=== PATIENT | female | born 1985 | race Caucasian/White ===

== ENCOUNTER 2017-08-04 10:58 | Emergency (ER) | payer MEDICARE, MEDICAID ==
[~2017-08-04] VITALS: Ht 172.7 cm; Wt 102.9 kg
[~2017-08-04 10:58] MED LIST: CLON0.1T20 PO; CLON1TAB4 PO; LAMO100T89 PO; LITH300T5 PO; NICO-687 TD; OLAN10TA19 PO; OLAN2.5T28 PO; VENL150T3 PO
[2017-08-04 11:29] VITALS: BP 159/77
== END 2017-08-04 14:37 | disposition left against medical advice (07) ==
LOC: ER 10:58
DX: R05 Cough (principal); Z53.21 Procedure and treatment not carried out due to patient leaving prior to being seen by health care provider

== ENCOUNTER 2018-02-15 22:12 | Emergency (ER) | payer MEDICARE, MEDICAID ==
[~2018-02-15] VITALS: Ht 172.7 cm; Wt 118.0 kg
[~2018-02-15 22:12] MED LIST changes: +CLON1TAB12 PO; -CLON1TAB4 PO
[2018-02-15 23:21] LABS: CLARITY,URINE CLEAR (Clear); COLOR,URINE YELLOW (Yellow); GLUCOSE, URINE NEGATIVE (Neg); KETONES,URINE NEGATIVE (Neg); LEUKOCYTE ESTERASE ,URINE NEGATIVE (Neg); NITRITES, URINE NEGATIVE (Neg); OCCULT BLOOD,URINE TRACE-INTACT (Neg); PROTEIN,URINE NEGATIVE (Neg); UROBILINOGEN,URINE 0.2 E.U/dL (0.2-1.0)
[2018-02-15 23:27] LABS: UA COLLECTION TYPE NON-SPECIFIED
[2018-02-15 23:28] LABS: BACTERIA,URINE FEW /HPF (Neg); RBC,URINE 0-2 /HPF (0-2); SQUAMOUS EPITHELIAL CELL,UR FEW /LPF (FEW); WBC,URINE 0-4 /HPF (0-4)
[2018-02-15 23:48] LABS: URINE HCG NEGATIVE (NEG)
[2018-02-16 00:18] VITALS: BP 97/56
[2018-02-16] MEDS ORDERED: TRAZ150T78 PO (00:19)
[2018-02-16] MEDS ORDERED: MECL-111 PO (00:19)
[2018-02-16] MEDS ORDERED: meclizine 12.5mg tablet PO ONE (00:20)
[2018-02-16] MEDS ORDERED: traZODone 150mg tablet PO ONE (00:25)
[2018-02-16] MEDS ORDERED: traZODone 150mg tablet PO SCH (20:00)
== END 2018-02-16 00:38 | disposition home or self-care (01) ==
LOC: ER 22:13
DX: G47.00 Insomnia, unspecified (principal); R42 Dizziness and giddiness; N93.9 Abnormal uterine and vaginal bleeding, unspecified; G89.29 Other chronic pain; F12.90 Cannabis use, unspecified, uncomplicated; F17.200 Nicotine dependence, unspecified, uncomplicated; Z86.69 Personal history of other diseases of the nervous system and sense organs; Z88.8 Allergy status to other drugs, medicaments and biological substances; Z79.899 Other long term (current) drug therapy
CPT/HCPCS: 81001; 81025; 93005; 99285; J8597

== ENCOUNTER → 2018-03-30 | Emergency (ER) | payer MEDICARE, MEDICAID ==
[~2018-03-30] VITALS: Ht 170.2 cm; Wt 118.0 kg
[~2018-03-30] MED LIST changes: +CLON-527 PO; +CLON0.2T PO; +LORazepam 2 mg/ml vial IV ONE; +MECL-111 PO; +PARO10TA85 PO; +QUET-1 PO; +TRAZ150T78 PO; +VENL-190 PO; +VENL150C2 PO; +normal saline 1000ML IV soln IVB ONE
[2018-03-30 15:25] LABS: URINE HCG NEGATIVE (NEG)
[2018-03-30 15:27] LABS: CLARITY,URINE CLOUDY (Clear); COLOR,URINE YELLOW (Yellow); GLUCOSE, URINE NEGATIVE (Neg); KETONES,URINE NEGATIVE (Neg); LEUKOCYTE ESTERASE ,URINE NEGATIVE (Neg); NITRITES, URINE NEGATIVE (Neg); OCCULT BLOOD,URINE SMALL (Neg); PROTEIN,URINE NEGATIVE (Neg)
[2018-03-30 15:28] LABS: UA COLLECTION TYPE CLN CATCH MIDSTREAM
[2018-03-30 15:36] LABS: AMORPHOUS URATES 2+; BACTERIA,URINE 1+ /HPF (Neg); MUCUS STRANDS MODERATE /LPF (Neg); RBC,URINE 0-2 /HPF (0-2); SQUAMOUS EPITHELIAL CELL,UR MODERATE /LPF (FEW); URINE AMPHETAMINE SCREEN NEGATIVE (Neg); URINE BARBITUATE SCREEN NEGATIVE (Neg); URINE BENZODIAZEPINES SCREEN NEGATIVE (Neg); URINE CANNABINOID SCREEN NEGATIVE (Neg); URINE COCAINE SCREEN NEGATIVE (Neg); URINE METHADONE SCREEN NEGATIVE (Neg); URINE OPIATE SCREEN NEGATIVE (Neg); URINE PHENCYCLIDINE SCREEN NEGATIVE (Neg)
[2018-03-30 15:37] LABS: BASOPHILS # (AUTO) 0.1 X10'3 (0-0.2); BASOPHILS % (AUTO) 0.5 % (0-1); EOSINOPHILS % (AUTO) 0.2 % (0-6); HEMATOCRIT 38.5 % (35.0-45.0); HEMOGLOBIN 12.6 g/dl (12.0-16.0); LYMPHOCYTES # (AUTO) 1.4 X10'3 (1.1-4.8); LYMPHOCYTES % (AUTO) 14.6 % (21-51); MEAN CORPUSCULAR HEMOGLOBIN 28.5 PG (27.0-31.0); MEAN CORPUSCULAR HGB CONC 32.7 % (33.0-36.5); MEAN CORPUSCULAR VOLUME 87.1 FL (78-98); MEAN PLATELET VOLUME 8.6 FL (7.4-10.4); MONOCYTES # (AUTO) 0.4 X10'3 (0-0.9); MONOCYTES % (AUTO) 4.3 % (2-12); NEUTROPHILS # (AUTO) 7.9 X10'3 (1.8-7.7); NEUTROPHILS % (AUTO) 80.4 % (42-75); PLATELET COUNT 324 X10'3 (140-440); RED BLOOD COUNT 4.42 X10'6 (4.20-5.60); RED CELL DISTRIBUTION WIDTH 13.6 % (11.5-14.5); WHITE BLOOD COUNT 9.8 X10'3 (4.5-11.0)
[2018-03-30 15:52] LABS: ALANINE AMINOTRANSFERASE 20 U/L (12-78); ALBUMIN 3.6 G/DL (3.4-5.0); ALBUMIN/GLOBULIN RATIO 1.1 (1.1-1.5); ALKALINE PHOSPHATASE 116 IU/L (46-116); ANION GAP 5 (8-16); ASPARTATE AMINO TRANSFERASE 13 U/L (10-37); BILIRUBIN,TOTAL 0.4 MG/DL (0.1-1.0); BLOOD UREA NITROGEN 10 MG/DL (7-18); BUN/CREATININE RATIO 9.5 (6.6-38.0); CALCIUM 9.3 MG/DL (8.5-10.1); CHLORIDE 104 MMOL/L (99-107); CREATININE 1.05 MG/DL (0.40-0.90); GLUCOSE 101 MG/DL (70-104); POTASSIUM 4.3 MMOL/L (3.5-5.1); SODIUM 137 MMOL/L (135-145); TOTAL CARBON DIOXIDE 28.3 MMOL/L (24-32); TOTAL PROTEIN 6.9 G/DL (6.4-8.2); eGFR 62 ML/MIN
[2018-03-30 16:22] VITALS: BP 141/75
== END | disposition home or self-care (01) ==
LOC: ER 14:34
DX: R42 Dizziness and giddiness (principal); I10 Essential (primary) hypertension; G89.29 Other chronic pain; F12.90 Cannabis use, unspecified, uncomplicated; Z88.5 Allergy status to narcotic agent; Z79.899 Other long term (current) drug therapy
CPT/HCPCS: 36415; 70450; 80053; 80305; 81001; 81025; 85025; 87088; 93005; 96361; 96374; 99285; J2060

== ENCOUNTER 2018-04-03 10:33 | Emergency (ER) | payer MEDICARE, MEDICAID ==
[~2018-04-03] VITALS: Ht 170.2 cm; Wt 112.8 kg
[~2018-04-03 10:33] MED LIST changes: -CLON-527 PO; -CLON0.2T PO; -LORazepam 2 mg/ml vial IV ONE; -PARO10TA85 PO; -QUET-1 PO; -VENL-190 PO; -VENL150C2 PO; -normal saline 1000ML IV soln IVB ONE
[2018-04-03 12:40] LABS: BASOPHILS # (AUTO) 0.1 X10'3 (0-0.2); EOSINOPHILS # (AUTO) 0.1 X10'3 (0-0.9); EOSINOPHILS % (AUTO) 0.8 % (0-6); HEMATOCRIT 43.2 % (35.0-45.0); HEMOGLOBIN 14.3 g/dl (12.0-16.0); LYMPHOCYTES # (AUTO) 1.8 X10'3 (1.1-4.8); LYMPHOCYTES % (AUTO) 15.1 % (21-51); MEAN CORPUSCULAR HEMOGLOBIN 28.8 PG (27.0-31.0); MEAN CORPUSCULAR VOLUME 87.3 FL (78-98); MEAN PLATELET VOLUME 8.9 FL (7.4-10.4); MONOCYTES # (AUTO) 0.4 X10'3 (0-0.9); MONOCYTES % (AUTO) 3.7 % (2-12); NEUTROPHILS # (AUTO) 9.3 X10'3 (1.8-7.7); NEUTROPHILS % (AUTO) 79.4 % (42-75); PLATELET COUNT 360 X10'3 (140-440); RED BLOOD COUNT 4.95 X10'6 (4.20-5.60); RED CELL DISTRIBUTION WIDTH 13.3 % (11.5-14.5); WHITE BLOOD COUNT 11.7 X10'3 (4.5-11.0)
[2018-04-03 12:49] LABS: URINE HCG NEGATIVE (NEG)
[2018-04-03 12:55] LABS: ALANINE AMINOTRANSFERASE 28 U/L (12-78); ALBUMIN 4.1 G/DL (3.4-5.0); ALBUMIN/GLOBULIN RATIO 1.1 (1.1-1.5); ALKALINE PHOSPHATASE 117 IU/L (46-116); ANION GAP 11 (8-16); ASPARTATE AMINO TRANSFERASE 15 U/L (10-37); BILIRUBIN,TOTAL 0.6 MG/DL (0.1-1.0); BLOOD UREA NITROGEN 11 MG/DL (7-18); BUN/CREATININE RATIO 12.6 (6.6-38.0); CALCIUM 9.9 MG/DL (8.5-10.1); CHLORIDE 103 MMOL/L (99-107); CREATININE 0.87 MG/DL (0.40-0.90); ETHANOL < 0.010 GM/DL (0.0-0.010); GLUCOSE 91 MG/DL (70-104); POTASSIUM 4.6 MMOL/L (3.5-5.1); SODIUM 140 MMOL/L (135-145); TOTAL CARBON DIOXIDE 26.1 MMOL/L (24-32); TOTAL PROTEIN 7.8 G/DL (6.4-8.2); eGFR 76 ML/MIN
[2018-04-03 13:01] LABS: URINE AMPHETAMINE SCREEN NEGATIVE (Neg); URINE BARBITUATE SCREEN NEGATIVE (Neg); URINE BENZODIAZEPINES SCREEN NEGATIVE (Neg); URINE CANNABINOID SCREEN NEGATIVE (Neg); URINE COCAINE SCREEN NEGATIVE (Neg); URINE METHADONE SCREEN NEGATIVE (Neg); URINE OPIATE SCREEN NEGATIVE (Neg); URINE PHENCYCLIDINE SCREEN NEGATIVE (Neg)
[2018-04-03] MEDS ORDERED: CLON0.2T PO (16:52)
[2018-04-03] MEDS ORDERED: VENL-190 PO (16:55)
[2018-04-03] MEDS ORDERED: VENL150C2 PO (17:33)
[2018-04-03] MEDS ORDERED: QUET-1 PO (17:34)
[2018-04-03] MEDS ORDERED: PARO10TA85 PO (17:51)
[2018-04-03] MEDS: LORazepam 1 MG tablet PO PRN (19:03)
[2018-04-03] MEDS ORDERED: CLON-527 PO (19:15)
[2018-04-03] MEDS: clonazePAM 1mg tablet PO SCH (20:10)
[2018-04-03] MEDS: cloNIDine 0.1 mg tablet PO SCH (20:10)
[2018-04-03] MEDS: lamoTRIgine 100mg tablet PO SCH (20:11)
[2018-04-03] MEDS ORDERED: quetiapine 100mg tablet PO SCH (21:00)
[2018-04-03] MEDS ORDERED: lithium carbonate 150mg capsule PO SCH (21:00)
[2018-04-04] MEDS ORDERED: acetaminophen 325mg tablet PO PRN (05:50)
[2018-04-04 05:54] VITALS: BP 99/55
[2018-04-04] MEDS: cloNIDine 0.1 mg tablet PO SCH ×2 (08:00→10:37)
[2018-04-04] MEDS ORDERED: venlafaxine XR 75mg capsule (Q24H) PO SCH (08:00)
[2018-04-04] MEDS ORDERED: non-formulary drug (Venlafaxine HCl (Effexor Xr) 2 CAP) PO SCH (08:00)
[2018-04-04] MEDS ORDERED: PARoxetine 10mg tablet PO SCH (08:00)
[2018-04-04] MEDS: lamoTRIgine 100mg tablet PO SCH (08:09)
[2018-04-04] MEDS: clonazePAM 1mg tablet PO SCH (08:10)
[2018-04-04] MEDS: LORazepam 1 MG tablet PO PRN (10:38)
== END 2018-04-04 13:49 ==
LOC: ER 10:33
DX: R45.851 Suicidal ideations (principal); I10 Essential (primary) hypertension; G89.29 Other chronic pain; F41.9 Anxiety disorder, unspecified; F31.9 Bipolar disorder, unspecified; F12.90 Cannabis use, unspecified, uncomplicated; Z88.5 Allergy status to narcotic agent; Z79.899 Other long term (current) drug therapy
CPT/HCPCS: 36415; 80053; 80178; 80305; 80320; 81025; 85025; 99285

== ENCOUNTER 2018-08-28 15:13 | Emergency (ER) | payer MEDICARE, MEDICAID ==
[~2018-08-28] VITALS: Ht 170.2 cm; Wt 126.8 kg
[~2018-08-28 15:13] MED LIST changes: +CLON-527 PO; -CLON0.1T20 PO; +CLON0.2T PO; -CLON1TAB12 PO; -MECL-111 PO; -NICO-687 TD; -OLAN10TA19 PO; -OLAN2.5T28 PO; +PARO10TA85 PO; +QUET-1 PO; -TRAZ150T78 PO; +VENL150C2 PO; -VENL150T3 PO
[2018-08-28 15:55] LABS: URINE HCG NEGATIVE (NEG)
[2018-08-28 15:56] LABS: CLARITY,URINE SLIGHTLY CLOUDY (Clear); COLOR,URINE YELLOW (Yellow); GLUCOSE, URINE NEGATIVE (Neg); KETONES,URINE NEGATIVE (Neg); LEUKOCYTE ESTERASE ,URINE NEGATIVE (Neg); NITRITES, URINE NEGATIVE (Neg); OCCULT BLOOD,URINE NEGATIVE (Neg); PROTEIN,URINE NEGATIVE (Neg); UROBILINOGEN,URINE 0.2 E.U/dL (0.2-1.0)
[2018-08-28 15:59] LABS: UA COLLECTION TYPE CLN CATCH MIDSTREAM
[2018-08-28 16:11] LABS: SQUAMOUS EPITHELIAL CELL,UR MANY /LPF (FEW)
[2018-08-28 16:13] LABS: BACTERIA,URINE 2+ /HPF (Neg); RBC,URINE NONE SEEN /HPF (0-2); WBC,URINE 0-4 /HPF (0-4)
[2018-08-28 16:17] LABS: BASOPHILS # (AUTO) 0.1 X10'3 (0-0.2); BASOPHILS % (AUTO) 0.7 % (0-1); EOSINOPHILS # (AUTO) 0.2 X10'3 (0-0.9); EOSINOPHILS % (AUTO) 2.1 % (0-6); HEMATOCRIT 43.1 % (35.0-45.0); HEMOGLOBIN 14.1 g/dl (12.0-16.0); LYMPHOCYTES # (AUTO) 2.3 X10'3 (1.1-4.8); MEAN CORPUSCULAR HEMOGLOBIN 28.4 PG (27.0-31.0); MEAN CORPUSCULAR HGB CONC 32.7 g/dL (33.0-36.5); MEAN CORPUSCULAR VOLUME 86.8 FL (78-98); MEAN PLATELET VOLUME 8.8 FL (7.4-10.4); MONOCYTES # (AUTO) 0.5 X10'3 (0-0.9); MONOCYTES % (AUTO) 5.2 % (2-12); NEUTROPHILS # (AUTO) 6.2 X10'3 (1.8-7.7); PLATELET COUNT 358 X10'3 (140-440); RED BLOOD COUNT 4.97 X10'6 (4.20-5.60); RED CELL DISTRIBUTION WIDTH 13.4 % (11.5-14.5); WHITE BLOOD COUNT 9.2 X10'3 (4.5-11.0)
[2018-08-28 16:39] LABS: ALANINE AMINOTRANSFERASE 38 U/L (12-78); ALBUMIN 4.2 G/DL (3.4-5.0); ALBUMIN/GLOBULIN RATIO 1.1 (1.1-1.5); ALKALINE PHOSPHATASE 140 IU/L (46-116); ANION GAP 9 (8-16); ASPARTATE AMINO TRANSFERASE 19 U/L (10-37); BILIRUBIN,TOTAL 0.5 MG/DL (0.1-1.0); BLOOD UREA NITROGEN 6 MG/DL (7-18); BUN/CREATININE RATIO 6.2 (6.6-38.0); CALCIUM 10.2 MG/DL (8.5-10.1); CHLORIDE 103 MMOL/L (99-107); CREATININE 0.97 MG/DL (0.40-0.90); GLUCOSE 80 MG/DL (70-104); POTASSIUM 3.9 MMOL/L (3.5-5.1); SODIUM 140 MMOL/L (135-145); TOTAL CARBON DIOXIDE 27.7 MMOL/L (24-32); TOTAL PROTEIN 8.2 G/DL (6.4-8.2); eGFR 67 ML/MIN
[2018-08-28 17:01] LABS: PROTHROMBIN TIME 10.1 SECONDS (9.0-12.0)
[2018-08-28] MEDS ORDERED: ondansetron 4mg rapidly disintigrating tab PO ONE (18:20)
[2018-08-28] MEDS ORDERED: HYDROcodone/acetaminophen 5mg/325mg tablet PO ONE (18:20)
[2018-08-28] MEDS ORDERED: NAPR-56 PO (19:04)
[2018-08-28] MEDS ORDERED: ONDA4TAB6 PO (19:04)
[2018-08-28 19:15] VITALS: BP 121/73
== END 2018-08-28 19:16 | disposition home or self-care (01) ==
LOC: ER 15:13
DX: R10.11 Right upper quadrant pain (principal); E66.01 Morbid (severe) obesity due to excess calories; R10.13 Epigastric pain; I10 Essential (primary) hypertension; G89.29 Other chronic pain; F12.90 Cannabis use, unspecified, uncomplicated; Z88.5 Allergy status to narcotic agent; Z79.899 Other long term (current) drug therapy
CPT/HCPCS: 36415; 76700; 80053; 81001; 81025; 85025; 85610; 99284

== ENCOUNTER 2019-11-02 13:15 | Emergency (ER) | payer MEDICARE, MEDICAID ==
[~2019-11-02] VITALS: Ht 170.2 cm; Wt 145.4 kg
[~2019-11-02 13:15] MED LIST changes: +LAMO100T PO; -LAMO100T89 PO; +ONDA4TAB6 PO
[2019-11-02 13:25] VITALS: BP 128/103
[2019-11-02] MEDS ORDERED: LORazepam 1 MG tablet PO ONE (14:05)
[2019-11-02] MEDS ORDERED: ondansetron 4mg rapidly disintigrating tab PO ONE (14:10)
[2019-11-02 14:28] LABS: BASOPHILS # (AUTO) 0.1 X10'3 (0-0.2); BASOPHILS % (AUTO) 1.1 % (0-1); EOSINOPHILS # (AUTO) 0.1 X10'3 (0-0.9); EOSINOPHILS % (AUTO) 1.1 % (0-6); HEMATOCRIT 42.2 % (35.0-45.0); HEMOGLOBIN 13.8 g/dl (12.0-16.0); LYMPHOCYTES # (AUTO) 1.9 X10'3 (1.1-4.8); LYMPHOCYTES % (AUTO) 23.9 % (21-51); MEAN CORPUSCULAR HEMOGLOBIN 27.4 PG (27.0-31.0); MEAN CORPUSCULAR HGB CONC 32.7 g/dL (33.0-36.5); MEAN CORPUSCULAR VOLUME 83.8 FL (78-98); MEAN PLATELET VOLUME 8.8 FL (7.4-10.4); MONOCYTES # (AUTO) 0.4 X10'3 (0-0.9); MONOCYTES % (AUTO) 5.1 % (2-12); NEUTROPHILS # (AUTO) 5.6 X10'3 (1.8-7.7); NEUTROPHILS % (AUTO) 68.8 % (42-75); PLATELET COUNT 282 X10'3 (140-440); RED BLOOD COUNT 5.04 X10'6 (4.20-5.60); RED CELL DISTRIBUTION WIDTH 15.1 % (11.5-14.5); WHITE BLOOD COUNT 8.1 X10'3 (4.5-11.0)
[2019-11-02 14:29] LABS: CLARITY,URINE SLIGHTLY CLOUDY (Clear); COLOR,URINE YELLOW (Yellow); GLUCOSE, URINE NEGATIVE (Neg); KETONES,URINE NEGATIVE (Neg); LEUKOCYTE ESTERASE ,URINE NEGATIVE (Neg); NITRITES, URINE NEGATIVE (Neg); OCCULT BLOOD,URINE NEGATIVE (Neg); PROTEIN,URINE NEGATIVE (Neg); UROBILINOGEN,URINE 0.2 E.U/dL (0.2-1.0)
[2019-11-02 14:30] LABS: URINE HCG NEGATIVE (NEG)
[2019-11-02 14:31] LABS: UA COLLECTION TYPE CLN CATCH MIDSTREAM
[2019-11-02 14:38] LABS: SQUAMOUS EPITHELIAL CELL,UR MODERATE /LPF (FEW)
[2019-11-02 14:39] LABS: BACTERIA,URINE 1+ /HPF (Neg); RBC,URINE 0-2 /HPF (0-2); WBC,URINE 0-4 /HPF (0-4)
[2019-11-02 14:42] LABS: ALANINE AMINOTRANSFERASE 44 U/L (12-78); ALBUMIN 3.5 G/DL (3.4-5.0); ALBUMIN/GLOBULIN RATIO 0.9 (1.1-1.5); ALKALINE PHOSPHATASE 164 IU/L (46-116); ANION GAP 9 (8-16); ASPARTATE AMINO TRANSFERASE 29 U/L (10-37); BILIRUBIN,TOTAL 0.4 MG/DL (0.1-1.0); BLOOD UREA NITROGEN 5 MG/DL (7-18); BUN/CREATININE RATIO 6.4 (6.6-38.0); CALCIUM 9.7 MG/DL (8.5-10.1); CHLORIDE 106 MMOL/L (99-107); CREATININE 0.78 MG/DL (0.40-0.90); GLUCOSE 91 MG/DL (70-104); LIPASE 113 U/L (73-393); POTASSIUM 4.2 MMOL/L (3.5-5.1); SODIUM 143 MMOL/L (135-145); TOTAL CARBON DIOXIDE 27.7 MMOL/L (24-32); TOTAL PROTEIN 7.6 G/DL (6.4-8.2); eGFR 86 ML/MIN
[2019-11-02] MEDS ORDERED: ONDA4TAB6 PO (14:51)
== END 2019-11-02 15:31 | disposition home or self-care (01) ==
LOC: ER 13:16
DX: R11.0 Nausea (principal); R42 Dizziness and giddiness; R06.02 Shortness of breath; M54.5 Low back pain; I10 Essential (primary) hypertension; G89.29 Other chronic pain; F41.9 Anxiety disorder, unspecified; F12.90 Cannabis use, unspecified, uncomplicated; F31.9 Bipolar disorder, unspecified; Z86.69 Personal history of other diseases of the nervous system and sense organs; Z88.8 Allergy status to other drugs, medicaments and biological substances; Z79.899 Other long term (current) drug therapy
CPT/HCPCS: 36415; 80053; 81001; 81025; 83690; 85025; 93005; 99284

== ENCOUNTER 2020-01-31 17:07 | Emergency (ER) | payer MEDICARE, MEDICAID ==
[~2020-01-31] VITALS: Ht 170.2 cm; Wt 149.0 kg
[2020-01-31] MEDS ORDERED: ORPH100T2 PO (19:14)
[2020-01-31 19:31] VITALS: BP 143/103
== END 2020-01-31 19:32 | disposition home or self-care (01) ==
LOC: ER 17:08
DX: M54.5 Low back pain (principal); G89.29 Other chronic pain; I10 Essential (primary) hypertension; F41.9 Anxiety disorder, unspecified; F31.9 Bipolar disorder, unspecified; F41.0 Panic disorder [episodic paroxysmal anxiety]; F12.90 Cannabis use, unspecified, uncomplicated; Z86.69 Personal history of other diseases of the nervous system and sense organs; Z88.8 Allergy status to other drugs, medicaments and biological substances; Z79.899 Other long term (current) drug therapy
CPT/HCPCS: 99283

== ENCOUNTER 2020-10-14 15:41 | Emergency (ER) | payer MEDICARE, MEDICAID ==
[~2020-10-14] VITALS: Ht 167.6 cm; Wt 152.0 kg
[~2020-10-14 15:41] MED LIST changes: +ATOR40TA72 PO; +BENZ1TAB7 PO; +CLON-330 PO; +CLON-371 PO; -CLON-527 PO; +DIVA500T9 PO; +INSU100C10 SQ; -LAMO100T PO; +LITH300C PO; -LITH300T5 PO; +METF500T PO; +OLAN15TA17 PO; -ONDA4TAB6 PO; -PARO10TA85 PO; +PREG150C46 PO; +PROC10TA10 PO; -QUET-1 PO; +QUET200T30 PO; -VENL150C2 PO; +VENL150C58 PO
[2020-10-14] MEDS ORDERED: normal saline 1000ML IV soln IVB ONE (15:45)
[2020-10-14 16:23] LABS: BASOPHILS # (AUTO) 0.1 X10'3 (0-0.2); BASOPHILS % (AUTO) 1.1 % (0-1); EOSINOPHILS # (AUTO) 0.2 X10'3 (0-0.9); EOSINOPHILS % (AUTO) 2.3 % (0-6); HEMATOCRIT 39.1 % (35.0-45.0); LYMPHOCYTES # (AUTO) 1.7 X10'3 (1.1-4.8); LYMPHOCYTES % (AUTO) 24.6 % (21-51); MEAN CORPUSCULAR HEMOGLOBIN 29.7 PG (27.0-31.0); MEAN CORPUSCULAR HGB CONC 33.2 g/dL (33.0-36.5); MEAN CORPUSCULAR VOLUME 89.6 FL (78-98); MEAN PLATELET VOLUME 8.5 FL (7.4-10.4); MONOCYTES # (AUTO) 0.6 X10'3 (0-0.9); MONOCYTES % (AUTO) 8.5 % (2-12); NEUTROPHILS # (AUTO) 4.3 X10'3 (1.8-7.7); NEUTROPHILS % (AUTO) 63.5 % (42-75); PLATELET COUNT 300 X10'3 (140-440); RED BLOOD COUNT 4.37 X10'6 (4.20-5.60); RED CELL DISTRIBUTION WIDTH 15.4 % (11.5-14.5); WHITE BLOOD COUNT 6.8 X10'3 (4.5-11.0)
[2020-10-14 16:38] LABS: ALANINE AMINOTRANSFERASE 58 U/L (12-78); ALBUMIN/GLOBULIN RATIO 0.7 (1.1-1.5); ALKALINE PHOSPHATASE 193 IU/L (46-116); ANION GAP 14 (8-16); ASPARTATE AMINO TRANSFERASE 28 U/L (10-37); BILIRUBIN,TOTAL 0.4 MG/DL (0.1-1.0); BLOOD UREA NITROGEN 10 MG/DL (7-18); BUN/CREATININE RATIO 12.2 (6.6-38.0); CALCIUM 9.7 MG/DL (8.5-10.1); CHLORIDE 97 MMOL/L (99-107); CREATININE 0.82 MG/DL (0.40-0.90); LIPASE 135 U/L (73-393); POTASSIUM 3.8 MMOL/L (3.5-5.1); SODIUM 136 MMOL/L (135-145); TOTAL CARBON DIOXIDE 25.3 MMOL/L (24-32); TOTAL PROTEIN 7.3 G/DL (6.4-8.2); eGFR 80 ML/MIN
[2020-10-14 16:41] LABS: GLUCOSE 462 MG/DL (70-104)
--- NOTE | 2020-10-14 16:55 | NUR ---
PT STATES TODAY WAS THE FIRST TIME SHE TOOK INSULIN SHE STATES SHE DID NOT GET IT UNTIL TODAY FROM THE PHARM. PT STATES SHE ATE 3 NECTRINES AND PUT BROWN SUGAR IN HER COFFEE BECAUSE SHE FORGOT. PT TOOK INSULIN 5 UNITS AROUND 1300.
--- NOTE | 2020-10-14 17:01 | NUR ---
RT AT BS FOR JENNA
[2020-10-14 17:08] LABS: ABG BASE EXCESS 0.9 mmol/L (-2.0-2.0); ABG HCO3 25.7 mmol/L (22.0-26.0); ABG OXYGEN SATURATION 91.4 % (94-97); ABG PCO2 (T) 41.7 mmHg (32.0-45.0); ABG PO2 (T) 61.2 mmHg (75.0-100.0); ALLEN'S TEST POSITIVE; FCOHb 0.4 % (0.0-3.9)
[2020-10-14] MEDS ORDERED: insulin regular, human 10 units/0.1 ml syringe IV ONE (17:45)
[2020-10-14 18:05] LABS: CLARITY,URINE SLIGHTLY CLOUDY (Clear); COLOR,URINE STRAW (Yellow); GLUCOSE, URINE >=1000 mg/dl (Neg); KETONES,URINE 40 mg/dl (Neg); LEUKOCYTE ESTERASE ,URINE NEGATIVE (Neg); NITRITES, URINE NEGATIVE (Neg); OCCULT BLOOD,URINE NEGATIVE (Neg); PROTEIN,URINE NEGATIVE (Neg); UROBILINOGEN,URINE 0.2 E.U/dL (0.2-1.0)
[2020-10-14 18:06] LABS: URINE HCG NEGATIVE (NEG)
[2020-10-14 18:15] LABS: UA COLLECTION TYPE CLN CATCH MIDSTREAM
[2020-10-14 18:16] LABS: SQUAMOUS EPITHELIAL CELL,UR MODERATE /LPF (FEW)
[2020-10-14 18:17] LABS: BACTERIA,URINE FEW /HPF (Neg); RBC,URINE 0-2 /HPF (0-2); WBC,URINE 0-4 /HPF (0-4)
[2020-10-14 18:22] VITALS: BP 142/107
== END 2020-10-14 18:23 | disposition home or self-care (01) ==
LOC: ER 15:41
DX: E11.65 Type 2 diabetes mellitus with hyperglycemia (principal); E11.10 Type 2 diabetes mellitus with ketoacidosis without coma; I10 Essential (primary) hypertension; G89.29 Other chronic pain; F41.9 Anxiety disorder, unspecified; F31.9 Bipolar disorder, unspecified; F12.90 Cannabis use, unspecified, uncomplicated; Z86.69 Personal history of other diseases of the nervous system and sense organs; Z88.8 Allergy status to other drugs, medicaments and biological substances; Z79.4 Long term (current) use of insulin; Z79.899 Other long term (current) drug therapy
CPT/HCPCS: 36415; 36600; 80053; 81001; 81025; 82803; 82948; 83690; 85018; 85025; 96374; 99283; J1815; J7030

== ENCOUNTER 2020-10-21 21:13 | Emergency (ER) | payer MEDICARE, MEDICAID ==
[~2020-10-21] VITALS: Ht 170.2 cm; Wt 145.4 kg
[2020-10-21 21:15] VITALS: BP 145/91
== END 2020-10-21 23:45 | disposition left against medical advice (07) ==
LOC: ER 21:14
DX: E11.65 Type 2 diabetes mellitus with hyperglycemia (principal); Z53.21 Procedure and treatment not carried out due to patient leaving prior to being seen by health care provider
CPT/HCPCS: 82948

== ENCOUNTER 2020-10-28 13:30 | Emergency (ER) | payer MEDICARE, MEDICAID ==
[~2020-10-28] VITALS: Ht 170.2 cm; Wt 145.4 kg
[2020-10-28 13:48] VITALS: BP 137/92
--- NOTE | 2020-10-28 15:14 | NUR ---
Lab has attempted to call patient back to 4 times and not in lobby.
== END 2020-10-28 21:00 | disposition left against medical advice (07) ==
LOC: ER 13:31
DX: E11.9 Type 2 diabetes mellitus without complications (principal); Z53.21 Procedure and treatment not carried out due to patient leaving prior to being seen by health care provider
CPT/HCPCS: 82948

== ENCOUNTER 2020-11-12 18:49 | Emergency (ER) | payer MEDICARE, MEDICAID ==
[~2020-11-12] VITALS: Ht 170.2 cm; Wt 133.4 kg
[2020-11-12 18:54] VITALS: BP 122/73
[2020-11-12] MEDS ORDERED: HYDR28CR14 TOP (20:05)
== END 2020-11-12 20:11 | disposition home or self-care (01) ==
LOC: ER 18:52
DX: L92.0 Granuloma annulare (principal); I10 Essential (primary) hypertension; E11.9 Type 2 diabetes mellitus without complications; G89.29 Other chronic pain; F41.9 Anxiety disorder, unspecified; F31.9 Bipolar disorder, unspecified; F12.90 Cannabis use, unspecified, uncomplicated; Z86.69 Personal history of other diseases of the nervous system and sense organs; Z88.8 Allergy status to other drugs, medicaments and biological substances; Z79.4 Long term (current) use of insulin; Z79.899 Other long term (current) drug therapy
CPT/HCPCS: 82948; 99283

== ENCOUNTER 2020-12-18 18:25 | Emergency (ER) | payer MEDICARE, MEDICAID ==
[~2020-12-18] VITALS: Ht 170.2 cm; Wt 150.0 kg
[~2020-12-18 18:25] MED LIST changes: +APIX5TAB3 PO; +DEXA4TAB67 PO; -METF500T PO; -OLAN15TA17 PO; +OLAN20TA19 PO; -QUET200T30 PO; +QUET200T31 PO
[2020-12-18 18:26] VITALS: BP 132/84
[2020-12-18] MEDS ORDERED: METF-900 PO (18:40)
[2020-12-18] MEDS ORDERED: DESV100T16 PO (18:40)
[2020-12-18] MEDS ORDERED: NOVLG (18:40)
[2020-12-18] MEDS ORDERED: QUET400T13 PO (18:40)
[2020-12-18] MEDS ORDERED: INSU100I31 SQ (18:40)
[2020-12-18] MEDS ORDERED: OLAN20TA34 PO (18:40)
[2020-12-18] MEDS ORDERED: HUM7525 SQ (18:50)
== END 2020-12-18 19:00 | disposition home or self-care (01) ==
LOC: ER 18:25
DX: E11.9 Type 2 diabetes mellitus without complications (principal); Z76.0 Encounter for issue of repeat prescription; G43.909 Migraine, unspecified, not intractable, without status migrainosus; I10 Essential (primary) hypertension; G89.29 Other chronic pain; Z79.4 Long term (current) use of insulin; Z79.899 Other long term (current) drug therapy; Z88.8 Allergy status to other drugs, medicaments and biological substances
CPT/HCPCS: 99281; 99283

== ENCOUNTER → 2021-02-28 | Emergency (ER) | payer MEDICARE, MEDICAID ==
[~2021-02-28] VITALS: Ht 170.2 cm; Wt 150.0 kg
[~2021-02-28] MED LIST changes: +DESV100T16 PO; +HUM7525 SQ; +INSU100I31 SQ; +METF-900 PO; +NOVLG; +OLAN20TA34 PO; +QUET400T13 PO
[2021-02-28 12:52] VITALS: BP 182/53
== END | disposition left against medical advice (07) ==
LOC: ER 12:06
DX: Z00.8 Encounter for other general examination (principal); Z53.21 Procedure and treatment not carried out due to patient leaving prior to being seen by health care provider

== ENCOUNTER 2021-06-10 12:49 | Outpatient (CLI) | payer MEDICARE, MEDICAID | END 2021-06-10 23:59 | disposition home or self-care (01) | LOC: LAB 12:49 | PROVIDERS: ATTEND Surgery | DX: Z01.818 Encounter for other preprocedural examination (principal); R00.0 Tachycardia, unspecified; R94.31 Abnormal electrocardiogram [ECG] [EKG]; E66.01 Morbid (severe) obesity due to excess calories; G47.33 Obstructive sleep apnea (adult) (pediatric) | CPT/HCPCS: 71046; 93005 ==

== ENCOUNTER 2021-06-17 13:45 | Outpatient (CLI) | payer MEDICARE, MEDICAID ==
[2021-06-17 14:17] LABS: ABG BASE EXCESS -3.2 mmol/L (-2.0-2.0); ABG HCO3 20.2 mmol/L (22.0-26.0); ABG OXYGEN SATURATION 95.3 % (94-97); ABG PCO2 (T) 31.8 mmHg (32.0-45.0); ABG PO2 (T) 69.7 mmHg (75.0-100.0); ALLEN'S TEST POSITIVE; FCOHb 0.8 % (0.0-3.9); FMetHb 0.3 % (0.0-1.5); FO2Hb 94.3 % (94-97); TOTAL HEMOGLOBIN 14.8 G/dl (12.0-16.0)
== END 2021-06-17 23:59 | disposition home or self-care (01) ==
LOC: RT 13:45
DX: E66.01 Morbid (severe) obesity due to excess calories (principal); G47.33 Obstructive sleep apnea (adult) (pediatric)
CPT/HCPCS: 36600; 82803; 85018

== ENCOUNTER 2021-08-05 09:27 | Outpatient (CLI) | payer MEDICARE, MEDICAID | END 2021-08-05 23:59 | disposition home or self-care (01) | LOC: RAD 09:27 | PROVIDERS: ATTEND Surgery | DX: K76.0 Fatty (change of) liver, not elsewhere classified (principal); R16.0 Hepatomegaly, not elsewhere classified; Z71.1 Person with feared health complaint in whom no diagnosis is made | CPT/HCPCS: 76700 ==

== ENCOUNTER 2022-07-30 16:41 | Emergency (ER) | payer MEDICARE, MEDICAID ==
[~2022-07-30] VITALS: Ht 172.7 cm; Wt 150.0 kg
[~2022-07-30 16:41] MED LIST changes: -BENZ1TAB7 PO; +BENZ1TAB78 PO
[2022-07-30] MEDS ORDERED: LORazepam 1 MG tablet PO ONE (17:00)
--- NOTE | 2022-07-30 17:39 | NUR ---
I AGREE WITH THE ASSESSMENT PER Calista MONTES LVN. PATIENT IS NOT HAVING PAIN AT THIS TIME.
[2022-07-30 18:15] VITALS: BP 120/75
== END 2022-07-30 18:49 | disposition home or self-care (01) ==
LOC: ER 16:42
DX: R00.2 Palpitations (principal); R07.9 Chest pain, unspecified; R42 Dizziness and giddiness; I10 Essential (primary) hypertension; E11.9 Type 2 diabetes mellitus without complications; G89.29 Other chronic pain; M54.9 Dorsalgia, unspecified; F31.9 Bipolar disorder, unspecified; F12.10 Cannabis abuse, uncomplicated; Z88.8 Allergy status to other drugs, medicaments and biological substances; Z79.899 Other long term (current) drug therapy
CPT/HCPCS: 90471; 93005; 99283

== ENCOUNTER 2024-03-03 17:00 | Emergency (ER) | payer MEDICARE, MEDICAID ==
[~2024-03-03] VITALS: Ht 170.2 cm; Wt 150.0 kg
[~2024-03-03 17:00] MED LIST changes: -OLAN20TA34 PO; +OLAN20TA81 PO; -PREG150C46 PO; +PREG150C47 PO; -PROC10TA10 PO; +PROC10TA97 PO
[2024-03-03 18:59] LABS: BASOPHILS # (AUTO) 0.1 X10'3 (0-0.2); BASOPHILS % (AUTO) 0.9 % (0-1); EOSINOPHILS # (AUTO) 0.3 X10'3 (0-0.9); EOSINOPHILS % (AUTO) 2.3 % (0-6); HEMATOCRIT 40.3 % (35.0-45.0); LYMPHOCYTES # (AUTO) 3.1 X10'3 (1.1-4.8); MEAN CORPUSCULAR HEMOGLOBIN 26.8 PG (27.0-31.0); MEAN CORPUSCULAR HGB CONC 32.3 g/dL (33.0-36.5); MEAN CORPUSCULAR VOLUME 82.8 FL (78-98); MEAN PLATELET VOLUME 9.5 FL (7.4-10.4); MONOCYTES # (AUTO) 0.6 X10'3 (0-0.9); MONOCYTES % (AUTO) 4.5 % (2-12); NEUTROPHILS # (AUTO) 8.8 X10'3 (1.8-7.7); NEUTROPHILS % (AUTO) 68.3 % (42-75); PLATELET COUNT 263 X10'3 (140-440); RED BLOOD COUNT 4.87 X10'6 (4.20-5.60); RED CELL DISTRIBUTION WIDTH 15.7 % (11.5-14.5); WHITE BLOOD COUNT 12.9 X10'3 (4.5-11.0)
[2024-03-03 19:16] LABS: ALANINE AMINOTRANSFERASE 33 U/L (12-78); ALBUMIN 3.1 G/DL (3.4-5.0); ALBUMIN/GLOBULIN RATIO 0.9 (1.1-1.5); ALKALINE PHOSPHATASE 155 IU/L (46-116); ANION GAP 9 (8-16); ASPARTATE AMINO TRANSFERASE 14 U/L (10-37); BILIRUBIN,TOTAL 0.5 MG/DL (0.1-1.0); BLOOD UREA NITROGEN 9 MG/DL (7-18); BUN/CREATININE RATIO 10.2 (10.0-20.0); CALCIUM 8.7 MG/DL (8.5-10.1); CHLORIDE 106 MMOL/L (99-107); CREATININE 0.88 MG/DL (0.40-0.90); GLUCOSE 154 MG/DL (70-104); LIPASE 42 U/L (16-77); POTASSIUM 3.6 MMOL/L (3.5-5.1); SODIUM 140 MMOL/L (135-145); TOTAL CARBON DIOXIDE 25.1 MMOL/L (24-32); TOTAL PROTEIN 6.7 G/DL (6.4-8.2); eCRCL 86 ML/MIN; eGFR 73 ML/MIN
[2024-03-03 19:26] LABS: BILIRUBIN,URINE NEGATIVE (Neg); CLARITY,URINE CLEAR (Clear); COLOR,URINE YELLOW (Yellow); GLUCOSE, URINE >=1000 mg/dl (Neg); KETONES,URINE NEGATIVE (Neg); LEUKOCYTE ESTERASE ,URINE NEGATIVE (Neg); NITRITES, URINE NEGATIVE (Neg); OCCULT BLOOD,URINE NEGATIVE (Neg); PROTEIN,URINE NEGATIVE (Neg); UROBILINOGEN,URINE 0.2 E.U/dL (0.2-1.0)
[2024-03-03 19:28] LABS: URINE HCG NEGATIVE (NEG)
[2024-03-03 19:42] LABS: UA COLLECTION TYPE NON-SPECIFIED
[2024-03-03 19:43] LABS: BACTERIA,URINE NONE SEEN /HPF (Neg); MUCUS STRANDS FEW /LPF (Neg); RBC,URINE 0-2 /HPF (0-2); SQUAMOUS EPITHELIAL CELL,UR FEW /LPF (FEW); WBC,URINE 0-4 /HPF (0-4)
[2024-03-03] MEDS: normal saline 1000ml 1,000 ML IV ONE (21:22)
[2024-03-03 21:58] VITALS: BP 143/88; PULSE 99; RESP 18; TEMP 98.5; O2SAT 95
== END 2024-03-03 22:03 | disposition home or self-care (01) ==
LOC: ER 17:00
DX: I95.1 Orthostatic hypotension (principal); I10 Essential (primary) hypertension; E11.9 Type 2 diabetes mellitus without complications; G89.29 Other chronic pain; F41.9 Anxiety disorder, unspecified; F32.A Depression, unspecified; F12.90 Cannabis use, unspecified, uncomplicated; Z88.8 Allergy status to other drugs, medicaments and biological substances; Z79.899 Other long term (current) drug therapy; Z79.4 Long term (current) use of insulin; Z79.84 Long term (current) use of oral hypoglycemic drugs
CPT/HCPCS: 36415; 80053; 81001; 81025; 83690; 85025; 93005; 99285; J7030

== ENCOUNTER 2024-03-18 06:58 | Outpatient (CLI) | payer MEDICARE, MEDICAID ==
[2024-03-18] VITALS (24 sets, daily range): BP systolic 67–153; BP diastolic 25–114; PULSE 97–136
== END 2024-03-18 23:59 | disposition home or self-care (01) ==
LOC: CARD DIAG 06:58
PROVIDERS: ATTEND Student in an Organized Health Care Education/Training Program
DX: R42 Dizziness and giddiness (principal)
CPT/HCPCS: 93660

== ENCOUNTER 2024-09-11 13:19 | Emergency (ER) | payer MEDICARE, MEDICAID ==
[~2024-09-11] VITALS: Ht 170.2 cm; Wt 153.0 kg
[2024-09-11 13:23] VITALS: TEMP 99
[2024-09-11 13:43] LABS: BASOPHILS # (AUTO) 0.1 X10'3 (0-0.2); BASOPHILS % (AUTO) 0.6 % (0-1); EOSINOPHILS # (AUTO) 0.1 X10'3 (0-0.9); HEMATOCRIT 42.6 % (35.0-45.0); HEMOGLOBIN 14.1 g/dl (12.0-16.0); LYMPHOCYTES # (AUTO) 2.5 X10'3 (1.1-4.8); LYMPHOCYTES % (AUTO) 18.6 % (21-51); MEAN CORPUSCULAR HEMOGLOBIN 26.8 PG (27.0-31.0); MEAN CORPUSCULAR HGB CONC 33.1 g/dL (33.0-36.5); MEAN PLATELET VOLUME 9.5 FL (7.4-10.4); MONOCYTES # (AUTO) 0.5 X10'3 (0-0.9); MONOCYTES % (AUTO) 3.9 % (2-12); NEUTROPHILS # (AUTO) 10.2 X10'3 (1.8-7.7); NEUTROPHILS % (AUTO) 75.9 % (42-75); PLATELET COUNT 267 X10'3 (140-440); RED BLOOD COUNT 5.26 X10'6 (4.20-5.60); RED CELL DISTRIBUTION WIDTH 15.8 % (11.5-14.5); WHITE BLOOD COUNT 13.5 X10'3 (4.5-11.0)
[2024-09-11 13:55] LABS: ALANINE AMINOTRANSFERASE 36 U/L (12-78); ALBUMIN 3.3 G/DL (3.4-5.0); ALBUMIN/GLOBULIN RATIO 0.8 (1.1-1.5); ALKALINE PHOSPHATASE 149 IU/L (46-116); ANION GAP 8 (8-16); ASPARTATE AMINO TRANSFERASE 17 U/L (10-37); BILIRUBIN,TOTAL 0.7 MG/DL (0.1-1.0); BLOOD UREA NITROGEN 14 MG/DL (7-18); BUN/CREATININE RATIO 18.2 (10.0-20.0); CALCIUM 9.3 MG/DL (8.5-10.1); CHLORIDE 104 MMOL/L (99-107); CREATININE 0.77 MG/DL (0.40-0.90); GLUCOSE 142 MG/DL (70-104); POTASSIUM 3.9 MMOL/L (3.5-5.1); SODIUM 139 MMOL/L (135-145); TOTAL CARBON DIOXIDE 26.9 MMOL/L (24-32); TOTAL PROTEIN 7.4 G/DL (6.4-8.2); eCRCL 97 ML/MIN; eGFR 84 ML/MIN
[2024-09-11 14:02] LABS: PRO BRAIN NATRIURETIC PEPTIDE < 30 PG/ML (0-125)
[2024-09-11 15:07] LABS: BILIRUBIN,URINE NEGATIVE (Neg); CLARITY,URINE CLEAR (Clear); COLOR,URINE YELLOW (Yellow); GLUCOSE, URINE NEGATIVE (Neg); KETONES,URINE NEGATIVE (Neg); LEUKOCYTE ESTERASE ,URINE NEGATIVE (Neg); NITRITES, URINE NEGATIVE (Neg); OCCULT BLOOD,URINE NEGATIVE (Neg); PH,URINE 6.5 (4.8-8.0); PROTEIN,URINE NEGATIVE (Neg); UROBILINOGEN,URINE 0.2 E.U/dL (0.2-1.0)
[2024-09-11 15:12] LABS: UA COLLECTION TYPE CLN CATCH MIDSTREAM
[2024-09-11 16:01] VITALS: BP 110/72; PULSE 124; RESP 14; O2SAT 94
== END 2024-09-11 16:02 | disposition home or self-care (01) ==
LOC: ER 13:20
DX: R55 Syncope and collapse (principal); E66.01 Morbid (severe) obesity due to excess calories; I11.0 Hypertensive heart disease with heart failure; I50.9 Heart failure, unspecified; E11.9 Type 2 diabetes mellitus without complications; G89.29 Other chronic pain; M54.9 Dorsalgia, unspecified; F32.A Depression, unspecified; F41.0 Panic disorder [episodic paroxysmal anxiety]; F41.9 Anxiety disorder, unspecified; F12.90 Cannabis use, unspecified, uncomplicated; Z88.8 Allergy status to other drugs, medicaments and biological substances; Z79.4 Long term (current) use of insulin; Z79.899 Other long term (current) drug therapy; Z68.41 Body mass index [BMI] 40.0-44.9, adult
CPT/HCPCS: 36415; 71045; 80053; 81003; 83880; 84484; 85025; 93005; 99285

== ENCOUNTER 2025-03-04 06:39 | Emergency (ER) | payer MEDICARE, MEDICAID ==
[~2025-03-04] VITALS: Ht 172.7 cm; Wt 163.0 kg
[2025-03-04 06:48] VITALS: TEMP 98
--- NOTE | 2025-03-04 07:00 | Physician Documentation ---
HPI ~ General Stated Complaint: SEE CHIEF COMPLAINT Jennifer BLAlice Time Seen by MD: 06:46 Primary Medical Doctor: RICO ARRIAGA History of Present Illness HPI Comment 39 year old female reports L upper molar dental pain for which she has an appointment today at 9 with a dentist. She also reports that she may have taken too much hydroxymitragynine which she purchased over the counter (6 pills in the past 24 hours). She is having shaking, anxiety. Denies other symptoms including nausea, vomiting, diarrhea, fevers. Medication Reconciliation Allergies: Coded Allergies: risperidone (Verified Allergy, Intermediate, 09/11/24) Scheduled Apixaban (Eliquis), 2.5 MG PO BID Atorvastatin Calcium (Atorvastatin Calcium), 1 TAB PO DAILY, (Reported) Benztropine Mesylate (Benztropine Mesylate), 1 TAB PO HS, (Reported) Clonazepam (Clonazepam), 1 TAB PO BID, (Reported) Clonidine HCl (Clonidine HCl), 1 TAB PO QAM, (Reported) Clonidine HCl (Clonidine HCl), 3 TABLET PO HS, (Reported) Desvenlafaxine Succinate (Desvenlafaxine Succinate ER), 2 TAB PO QAM, (Reported) Dexamethasone (Decadron), 1 TAB PO Q12H Divalproex ER* (Depakote ER*), 2 TAB PO HS, (Reported) Insulin Aspart (Novolog), 1 UNITS SQ CC Insulin Glargine,Hum.rec.anlog (Basaglar Kwikpen U-100), 20 UNITS SQ HS, (Reported) Insulin Lispro (Humalog), 5 UNITS SQ ACHS [place] Carbonate ([place] Carbonate), 2 CAP PO BID, (Reported) Metformin Hcl* (Metformin ER*), 1 TAB PO BID, (Reported) Olanzapine (Olanzapine), 1 TAB PO HS, (Reported) Olanzapine (Olanzapine), 1 TAB PO HS, (Reported) Pregabalin (Pregabalin), 1 TAB PO QID, (Reported) Prochlorperazine Maleate (Prochlorperazine Maleate), 1 TAB PO TID, (Reported) Quetiapine Fumarate (Quetiapine Fumarate), 1 TAB PO HS, (Reported) Quetiapine Fumarate (Quetiapine Fumarate), 1 TAB PO HS, (Reported) Venlafaxine Hcl (Venlafaxine Hcl Er), 2 CAP PO DAILY, (Reported) Miscellaneous Medications Insulin Aspart (Novolog), (Reported) Past Medical History Past Medical History: Seizures, Hypertension, Diabetes, Chronic Pain, Chronic Back Pain, Anxiety, Bipolar, Depression, Panic Disorder Past Surgical History: noncontributory Patient History: (DM Type 2) Diabetes mellitus type 2 FATHER FH: bipolar disorder FATHER MOTHER Sister Other Past Family History: Maternal grandmother of [place] at age 34 Alcohol Use: Rarely Drug Use: marijuana Lives with: Spouse Lives In: Home Occupation: disabled Review of Systems All Other Systems at this time: Reviewed and Negative Physical Exam Vital Signs: RN Vital Signs have been reviewed: Yes Physical Exam HEENT: PERRL, moist oral mucosa, EOMI Pulmonary: No respiratory distress MSK: no deformity Skin: w/d/i, no rash Neuro: alert, nonfocal Psych: tearful Medical Decision Making Findings 39 year old female with dental abscess and anxiety. I explained to the patient that 6 pills of her herbal supplement was not likely to be a significant overdose and that her symptoms were not likely 2/2 to this substance. ABx, reassurance, return precautions. Differential Dx:Considerations: Include: Periapical abscess, Peridontal abscess, Pulpitis, Tooth Fracture Additional Comment ddx includes accidental and intentional overdose Departure Disposition: 01 HOME / SELF CARE / HOMELESS Impression: Primary Impression: Dental abscess Additional Impression: Overdose Condition: Stable Discharge Instructions: Dental Abscess Referrals: NO PRIMARY CARE PROVIDER (PCP) Prescriptions Clindamycin HCl (Clindamycin HCl CAPSULE) 150 Mg Capsule 2 CAP PO TID, #60 CAP Prov: ARTEM CELESTIN MD 03/04/25 Education Educated: Patient Educated regarding: diagnosis, treatment, prognosis, need for follow up Signature Scribe Signature: . Attestation: . ARTEM CELESTIN MD Mar 04, 2025 07:00
[2025-03-04] MEDS ORDERED: CLIN-214 PO (07:01)
[2025-03-04 07:21] VITALS: BP 124/73; PULSE 110; RESP 22; O2SAT 94
== END 2025-03-04 07:22 | disposition home or self-care (01) ==
LOC: ER 06:40
DX: K04.7 Periapical abscess without sinus (principal); T50.991A Poisoning by other drugs, medicaments and biological substances, accidental (unintentional), initial encounter; I10 Essential (primary) hypertension; G89.29 Other chronic pain; F41.9 Anxiety disorder, unspecified; F31.9 Bipolar disorder, unspecified; E11.9 Type 2 diabetes mellitus without complications; F12.90 Cannabis use, unspecified, uncomplicated; Z88.8 Allergy status to other drugs, medicaments and biological substances; Z79.899 Other long term (current) drug therapy; Z79.4 Long term (current) use of insulin; Y92.89 Other specified places as the place of occurrence of the external cause
CPT/HCPCS: 99283

== ENCOUNTER 2025-04-02 22:29 | Emergency (ER) | payer MEDICARE, MEDICAID ==
[~2025-04-02] VITALS: Ht 172.7 cm; Wt 176.0 kg
[~2025-04-02 22:29] MED LIST changes: +CLIN-214 PO
--- NOTE | 2025-04-02 22:44 | ELECTROCARDIOGRAPH REPORT ---
[facility] Test Date: 2025-04-02 Test Time: 22:41:46 Pat Name: DAIN CAMARGO Department: EMERGENCY ROOM Room: Gender: F Voip Technician: : 1985 Requested By: DENG MUNOZ Order Number: [id number] Reading MD: Dr. ARTIE Hough Measurements Intervals [place] Rate: 87 P: 3 MO: 156 QRS: 36 QRSD: 79 T: 49 QT: 371 QTc: 447 Interpretive Statements Sinus rhythm Electronically Signed On 04-05-2025 11:44:[address] ARTIE Hough Please click the below link to view image of tracing.
--- NOTE | 2025-04-02 22:50 | Physician Documentation ---
History of Present Illness ~ Chief Complaint: Chest Pain Stated Complaint: CHEST PAIN Time Seen by MD: 22:41 Primary Medical Doctor: Elmer Rios Mode of Arrival: EMS HPI Patient presents to the emergency room for evaluation of chest pain that has been going on and off for the past few days. Pain that has left-sided. Exacerbated with lying flat improved with standing upright. Patient has been referred to flight operations specialist as she does have history of heart failure. She states she had a negative stress test a proximally eight months ago. Medication Reconciliation Allergies: Coded Allergies: risperidone (Verified Allergy, Intermediate, 04/02/25) Scheduled Apixaban (Eliquis), 2.5 MG PO BID Atorvastatin Calcium (Atorvastatin Calcium), 1 TAB PO DAILY, (Reported) Benztropine Mesylate (Benztropine Mesylate), 1 TAB PO HS, (Reported) Clindamycin HCl (Clindamycin HCl CAPSULE), 2 CAP PO TID Clonazepam (Clonazepam), 1 TAB PO BID, (Reported) Clonidine HCl (Clonidine HCl), 1 TAB PO QAM, (Reported) Clonidine HCl (Clonidine HCl), 3 TABLET PO HS, (Reported) Desvenlafaxine Succinate (Desvenlafaxine Succinate ER), 2 TAB PO QAM, (Reported) Dexamethasone (Decadron), 1 TAB PO Q12H Divalproex ER* (Depakote ER*), 2 TAB PO HS, (Reported) Insulin Aspart (Novolog), 1 UNITS SQ CC Insulin Glargine,Hum.rec.anlog (Basaglar Kwikpen U-100), 20 UNITS SQ HS, (Reported) Insulin Lispro (Humalog), 5 UNITS SQ ACHS [place] Carbonate ([place] Carbonate), 2 CAP PO BID, (Reported) Metformin Hcl* (Metformin ER*), 1 TAB PO BID, (Reported) Olanzapine (Olanzapine), 1 TAB PO HS, (Reported) Olanzapine (Olanzapine), 1 TAB PO HS, (Reported) Pregabalin (Pregabalin), 1 TAB PO QID, (Reported) Prochlorperazine Maleate (Prochlorperazine Maleate), 1 TAB PO TID, (Reported) Quetiapine Fumarate (Quetiapine Fumarate), 1 TAB PO HS, (Reported) Quetiapine Fumarate (Quetiapine Fumarate), 1 TAB PO HS, (Reported) Venlafaxine Hcl (Venlafaxine Hcl Er), 2 CAP PO DAILY, (Reported) Miscellaneous Medications Insulin Aspart (Novolog), (Reported) Past Medical History Past Medical History: Seizures, Hypertension, Diabetes, Chronic Pain, Chronic Back Pain, Anxiety, Bipolar, Depression, Panic Disorder Past Surgical History: noncontributory Patient History: (DM Type 2) Diabetes mellitus type 2 FATHER FH: bipolar disorder FATHER MOTHER Sister Other Past Family History: Maternal grandmother of [place] at age 34 Alcohol Use: Rarely Drug Use: marijuana Lives with: Spouse Lives In: Home Occupation: disabled Review of Systems ROS All review of systems negative except as per HPI Physical Exam Vital Signs: Heart Rate: 90, Respiratory Rate: 16, BP: 99/77, Pulse Oximetry: 94, Weight: 176.000 Physical Exam General: Patient is awake, alert, oriented x4 in no acute distress and well appearing.~ Head: Normocephalic and atraumatic. Eyes: Conjunctival normal. EOMI. PERRL. ENT: Mucous membranes moist. Neck: Supple, trachea is midline. Chest: Clear to auscultation bilaterally without rales, rhonchi, or wheezes. There is no accessory muscle use or retractions. Cardiac: RRR without murmurs, gallops, or rubs. Abd: Soft, nondistended, nontender, with normoactive bowel sounds. No guarding, rebound, or rigidity. Extremities: Normal strength. Normal range of motion. No deformities or edema. Progress Results/Orders Results/Orders Orders - EFRAÍN MUNOZ MD Chest,Single View (04/02/25 22:37) Monitor (04/02/25 22:37) Saline Lock (04/02/25 22:37) Oxygen (04/02/25 22:37) Hs Troponin I W Calculations (04/03/25 00:37) Hs Troponin I W Calculations (04/03/25 01:37) Completed Orders - EFRAÍN MUNOZ MD Chest,Single View (04/02/25 22:37) Cbc/Diff (04/02/25 22:37) BMP (04/02/25 22:37) PBNP (04/02/25 22:37) Electrocardiogram (04/02/25 22:37) Hs Troponin I W Calculations (04/02/25 22:37) CMP (04/02/25 22:37) D-Dimer (04/02/25 22:51) Vital Signs 04/02/25 04/02/25 22:35 22:38 Pulse 90 Resp 16 16 B/P (MAP) 99/77 Pulse Ox 94 Laboratory Tests Test 04/02/25 22:37 White Blood Count 8.8 Red Blood Count 5.02 Hemoglobin 13.4 Hematocrit 40.9 Mean Corpuscular Volume 81.5 Mean Corpuscular Hemoglobin 26.7 L Mean Corpuscular Hemoglobin Concent 32.8 L Red Cell Distribution Width 16.6 H Platelet Count 205 Mean Platelet Volume 9.9 Neutrophils (%) (Auto) 59.3 Lymphocytes (%) (Auto) 32.3 Monocytes (%) (Auto) 5.0 Eosinophils (%) (Auto) 2.8 Basophils (%) (Auto) 0.6 Neutrophils # (Auto) 5.2 Lymphocytes # (Auto) 2.9 Monocytes # (Auto) 0.4 Eosinophils # (Auto) 0.2 Basophils # (Auto) 0.1 CBC Comment D-Dimer 0.32 D-Dimer Comment Sodium Level 139 Potassium Level 3.9 Chloride Level 105 Carbon Dioxide Level 23.8 L Anion Gap 10 Blood Urea Nitrogen 15 Creatinine 0.67 Estimated GFR/1.73 m2 > 90 BUN/Creatinine Ratio 22.4 H Glucose Level 158 H Calcium Level 8.2 L Total Bilirubin 0.3 Aspartate Amino Transf (AST/SGOT) 25 Alanine Aminotransferase (ALT/SGPT) 40 Alkaline Phosphatase 162 H Troponin I High Sensitivity 4 Pro-B-Type Natriuretic Peptide < 30 Total Protein 7.1 Albumin 3.3 L Globulin 3.8 Albumin/Globulin Ratio 0.9 L Chemistry Comments EKG/XRAY/CT/US/VASC/MRI EKG : Additional Comment EKG interpreted by myself shows time of 07/17/2040, rate 87, sinus rhythm, normal axis, no ST changes Medical Decision Making Additional information obtaine: old records Findings Patient presents to the emergency room with chest pain as per HPI. Differentials include but are not limited to ACS, musculoskeletal pain, reflux, pulmonary embolism, aortic pathology. I do not feel patient requires investigation into aortic pathology given her age. D-dimer negative. Troponins negative. I do not feel patient requires a 2nd troponin given time of onset. Unknown cause for patient's pain. Fact that she has had a negative stress test a proximally eight weeks ago was reassuring. She is established with a financial services auditor. ER precautions discussed. Heart Score: 2 Differential Dx:Considerations: Include: angina, aortic dissection, chest wall pain, cholelithiasis, CHF, costochondritis, esophageal reflux/spasm, gastritis, herpes zoster, myocardial infarction, pericarditis, pleuritis, pancreatitis, pneumonia, pneumothorax, pulmonary embolus, other Departure Disposition: HOME / SELF CARE / HOMELESS Impression: Primary Impression: Chest pain Condition: Stable Discharge Instructions: Nonspecific Chest Pain, Adult Referrals: NO PRIMARY CARE PROVIDER (PCP) Signature Scribe Signature: No scribe Attestation: The note accurately reflects work and decisions made by me.Efraín Munoz MD 04/02/25 23:46 EFRAÍN MUNOZ MD Apr 02, 2025 22:50
[2025-04-02 22:55] LABS: MEAN PLATELET VOLUME 9.9 FL (7.4-10.4); RED CELL DISTRIBUTION WIDTH 16.6 % (11.5-14.5)
[2025-04-02 23:16] LABS: CREATININE 0.67 MG/DL (0.40-0.90); TOTAL CARBON DIOXIDE 23.8 MMOL/L (24-32); eCRCL 116 ML/MIN; eGFR > 90 ML/MIN
--- NOTE | 2025-04-02 23:19 | RADIOLOGY REPORT ---
CHEST RADIOGRAPH Indication: CP Technique: Single frontal view of the chest was obtained COMPARISON: DI CHEST,SINGLE VIEW on DOS: 09/11/24 FINDINGS: Lungs and pleural spaces are clear. Cardiac silhouette and stephanie are within normal limits. Bones and soft tissues demonstrate no significant abnormality. IMPRESSION: No acute disease.
[2025-04-02 23:24] LABS: PRO BRAIN NATRIURETIC PEPTIDE < 30 PG/ML (0-125)
[2025-04-02 23:52] VITALS: BP 116/71; PULSE 78; RESP 16; O2SAT 94
== END 2025-04-02 23:57 | disposition home or self-care (01) ==
LOC: ER 22:30
DX: R07.9 Chest pain, unspecified (principal); I11.0 Hypertensive heart disease with heart failure; I50.9 Heart failure, unspecified; E11.9 Type 2 diabetes mellitus without complications; G89.29 Other chronic pain; F31.9 Bipolar disorder, unspecified; Z88.8 Allergy status to other drugs, medicaments and biological substances; Z79.899 Other long term (current) drug therapy
CPT/HCPCS: 36415; 71045; 80053; 83880; 84484; 85025; 85379; 93005; 99285

== ENCOUNTER 2025-04-04 15:04 | Emergency (ER) | payer MEDICARE, MEDICAID ==
[~2025-04-04] VITALS: Ht 172.7 cm; Wt 166.5 kg
[2025-04-04 15:18] VITALS: BP 138/96; PULSE 127; RESP 24; TEMP 97.6; O2SAT 94
== END 2025-04-04 16:02 | disposition left against medical advice (07) ==
LOC: ER 15:05
DX: Z00.00 Encounter for general adult medical examination without abnormal findings (principal); Z53.21 Procedure and treatment not carried out due to patient leaving prior to being seen by health care provider; Z88.8 Allergy status to other drugs, medicaments and biological substances
CPT/HCPCS: 99281

== ENCOUNTER 2025-04-05 05:52 | Emergency (ER) | payer MEDICARE, MEDICAID ==
[~2025-04-05] VITALS: Ht 172.7 cm; Wt 166.9 kg
[2025-04-05 06:01] VITALS: BP 125/85; PULSE 88; RESP 22; TEMP 97.8; O2SAT 95
--- NOTE | 2025-04-05 07:51 | Physician Documentation ---
Addendum CHIEF COMPLAINT/HPI: The patient is a 39-year-old female with a history of obesity, CHF, hypertens ion, diabetes, seizures, chronic pain, anxiety, bipolar disorder, depression and panic disorder REVIEW OF SYSTEMS: Constitutional: Denies chills, fatigue, fever, weight gain or weight loss. HEENT: Denies hearing loss, sinus pressure or visual changes. Respiratory: Denies cough, shortness of breath or wheezing. Cardiovascular: Denies chest pain, pain while walking (claudication), edema or palpitations. Gastrointestinal: Denies abdominal pain, blood in stool, constipation, diarrhea, heartburn, loss of appetite, nausea or vomiting. Genitourinary: Denies painful urination (dysuria), excessive amount of urine (polyuria) or urinary frequency. Metabolic/Endocrine: Denies cold intolerance, heat intolerance, excessive thirst (polydipsia) or excessive hunger (polyphagia). Neurological: Denies dizziness, extremity numbness, extremity weakness, headaches, seizures or tremors. Psychiatric: Denies anxiety or depression. Integumentary: Denies breast discharge, breast lump, hives, mole change(s), rash or skin lesion. Musculoskeletal: Denies back pain, joint pain, joint swelling or neck pain. Hematologic: Denies easily bleeding, easily bruises, lymphedema or issues with blood clots. Immunologic: Denies food allergies or seasonal allergies. PHYSICAL EXAMINATION: Vitals and nursing note reviewed. Constitutional: General: Patient is awake, alert, oriented x 4 in no acute distress and well appearing. Speech is clear and lucid. Appearance: Normal appearance. Patient is not ill-appearing, toxic-appearing or diaphoretic. HENT: Head: Normocephalic and atraumatic. Mouth: Mucous membranes are moist. Pharynx: Oropharynx is clear. Eyes: General: No scleral icterus. Extraocular Movements: Extraocular movements intact. Pupils: Pupils are equal, round, and reactive to light. Neck: Supple, no Kernig or Brudzinski sign. Cardiovascular: Rate and Rhythm: Normal rate and regular rhythm. Heart sounds: No murmur heard. Pulmonary: Effort: No respiratory distress. Breath sounds: No wheezing, rhonchi or rales. Abdominal: General: There is no distension. Palpations: There is no fluid wave, hepatomegaly or mass. Tenderness: There is no abdominal tenderness. There is no guarding. Musculoskeletal: General: No swelling or deformity. Skin: Coloration: Skin is not jaundiced. Findings: No erythema or rash. Neurological: Mental Status: Patient is alert. MEDICAL DECISION MAKING: [MDI] SHAZIA TAMAYO MD Apr 05, 2025 07:51
== END 2025-04-05 08:35 | disposition left against medical advice (07) ==
LOC: ER 05:53
DX: Z00.8 Encounter for other general examination (principal)
CPT/HCPCS: 99281

== ENCOUNTER 2025-05-09 17:23 | Emergency (ER) | payer MEDICARE, MEDICAID ==
[~2025-05-09] VITALS: Ht 172.7 cm; Wt 164.1 kg
[2025-05-09 17:27] VITALS: BP 164/105; PULSE 84; RESP 20; TEMP 97.2; O2SAT 98
== END 2025-05-09 20:32 | disposition left against medical advice (07) ==
LOC: ER 17:23
DX: K08.89 Other specified disorders of teeth and supporting structures (principal); Z88.8 Allergy status to other drugs, medicaments and biological substances; Z53.21 Procedure and treatment not carried out due to patient leaving prior to being seen by health care provider
CPT/HCPCS: 99281

== ENCOUNTER 2025-05-10 22:14 | Emergency (ER) | payer MEDICARE, MEDICAID ==
[~2025-05-10] VITALS: Ht 172.7 cm; Wt 154.6 kg
[2025-05-10 23:37] VITALS: BP 122/84; PULSE 94; O2SAT 96
[2025-05-10] MEDS: amox tr/potassium clavulanate 875/125mg TAB PO ONE (23:43)
[2025-05-10 23:44] VITALS: RESP 18
[2025-05-11] MEDS ORDERED: AMOX-580 PO (00:25)
--- NOTE | 2025-05-11 00:26 | Physician Documentation ---
HPI ~ General Chief Complaint: Tooth Problem Stated Complaint: MOUTH PAIN Time Seen by MD: 23:36 Primary Medical Doctor: Elmer Rios History of Present Illness HPI Comment This is a 39-year-old female with a known history of poor dentition, fractured left upper 1st molar, presents for evaluation of one month of dental pain worse with the last 24 hours. Nothing seems to be helping. She has been taking her Kimberly that I prescribed to her as part of pain management, pain and this isn't helping. She has been attempting to treat with a with a every imaginable [id number] medication. She has a dental appointment for extraction on Sunday. Denies difficulty opening her mouth, difficulty breathing, voice changes, drooling. Pain radiates into her head. Denies any other symptoms. Medication Reconciliation Allergies: Coded Allergies: risperidone (Verified Allergy, Intermediate, 05/09/25) Scheduled Apixaban (Eliquis), 2.5 MG PO BID Atorvastatin Calcium (Atorvastatin Calcium), 1 TAB PO DAILY, (Reported) Benztropine Mesylate (Benztropine Mesylate), 1 TAB PO HS, (Reported) Clindamycin HCl (Clindamycin HCl CAPSULE), 2 CAP PO TID Clonazepam (Clonazepam), 1 TAB PO BID, (Reported) Clonidine HCl (Clonidine HCl), 1 TAB PO QAM, (Reported) Clonidine HCl (Clonidine HCl), 3 TABLET PO HS, (Reported) Desvenlafaxine Succinate (Desvenlafaxine Succinate ER), 2 TAB PO QAM, (Reported) Dexamethasone (Decadron), 1 TAB PO Q12H Divalproex ER* (Depakote ER*), 2 TAB PO HS, (Reported) Insulin Aspart (Novolog), 1 UNITS SQ CC Insulin Glargine,Hum.rec.anlog (Basaglar Kwikpen U-100), 20 UNITS SQ HS, (Reported) Insulin Lispro (Humalog), 5 UNITS SQ ACHS Pasco Carbonate (Pasco Carbonate), 2 CAP PO BID, (Reported) Metformin Hcl* (Metformin ER*), 1 TAB PO BID, (Reported) Olanzapine (Olanzapine), 1 TAB PO HS, (Reported) Olanzapine (Olanzapine), 1 TAB PO HS, (Reported) Pregabalin (Pregabalin), 1 TAB PO QID, (Reported) Prochlorperazine Maleate (Prochlorperazine Maleate), 1 TAB PO TID, (Reported) Quetiapine Fumarate (Quetiapine Fumarate), 1 TAB PO HS, (Reported) Quetiapine Fumarate (Quetiapine Fumarate), 1 TAB PO HS, (Reported) Venlafaxine Hcl (Venlafaxine Hcl Er), 2 CAP PO DAILY, (Reported) Miscellaneous Medications Insulin Aspart (Novolog), (Reported) Past Medical History Past Medical History: Seizures, Hypertension, Diabetes, Chronic Pain, Chronic Back Pain, Anxiety, Bipolar, Depression, Panic Disorder Past Surgical History: noncontributory Patient History: (DM Type 2) Diabetes mellitus type 2 FATHER FH: bipolar disorder FATHER MOTHER Sister Other Past Family History: Maternal grandmother of [place] at age 34 Smoking Status: Former smoker Alcohol Use: Rarely Drug Use: marijuana Lives with: Spouse Lives In: Home Occupation: disabled Review of Systems ROS 10 point review of systems was performed and unless noted above in HPI is negative for acute process/complaint. Physical Exam Vital Signs: Temperature: 96.1, Source: Temporal, Heart Rate: 94, Respiratory Rate: 18, BP: 122/84, Pulse Oximetry: 96, Weight: 154.550 Oxygen Flow Rate: 0 Physical Exam Physical examination: GENERAL: Awake, alert, oriented, GCS 15, no apparent distress, non-toxic appearing, answers questions, follows commands appropriately. Examined in bed 8., accompanied by significant other HEENT: Atraumatic, normocephalic, pupils equal, extraocular muscles intact Active gross movements, sclerae anicteric, mucus membranes moist, no stridor. NECK: Midline, no JVD CARDIOVASCULAR: Good skin perfusion without evidence of pallor, mottling. PULMONARY: Nonlabored, symmetric chest rise, no audible wheezing, no accessory muscle use, no respiratory distress, speaking in full sentences. GASTROINTESTINAL: Not distended. NEUROLOGIC: Lucid with normal mental status. Normal facial symmetry. Moves all extremities symmetrically and with purpose. No truncal ataxia. Speech is fluid without evidence of dysarthria or aphasia, no focal deficits appreciated. EXTREMITIES: Acute deformities Skin: warm, dry PSYCHIATRIC: Normal affect, normal insight, normal concentration. Focused exam: [Poor dentition noted. There is a fractured tooth 1st molar on the left upper jaw with a exposed dentin. Extensive caries noted. No appreciable buccal abscess. No trismus, no drooling, no hot potato voice, no floor of the mouth elevation no brawny submandibular erythema.] Progress Results/Orders Results/Orders Completed Orders - KULDEEP PAIGE DO Amox Tr/Potassium Clavulanate (Augmentin (05/10/25 23:40) Hydromorphone 1 Mg/Ml/Pf (Dilaudid Inj.) (05/10/25 23:40) Medications Received in ER Medications (Trade) Dose Ordered Sig/Corbin Route PRN Reason Start Time Stop Time Status Last Admin Dose Admin (Augmentin 875-125mg tablet) 1 tab ONCE ONCE PO 05/10/25 23:40 05/10/25 23:41 DC 05/10/25 23:43 1 TAB (Dilaudid inj.) 2 mg ONCE ONCE IM 05/10/25 23:40 05/10/25 23:41 DC 05/10/25 23:44 2 MG Vital Signs 05/10/25 05/10/25 05/10/25 22:56 23:37 23:44 Temp 98.0 96.1 Pulse 104 94 Resp 16 20 18 B/P (MAP) 114/78 122/84 (97) Pulse Ox 96 96 O2 Flow Rate 0 Medical Decision Making Additional information obtaine: family Findings Facility Status: ED [facility], [facility] process The plan was discussed with the patient, who demonstrates clear understanding of the plan and is in agreement with the plan unless otherwise noted in the chart. All questions have been answered, all concerns were addressed unless otherwise documented. I was available throughout their ED stay for frequent reassessment and questions. Differential Diagnoses (considered and possible or likely): [Dental pain, dental infection, dental abscess, less likely osteomyelitis of the jaw] ??Differential Diagnoses (considered and unlikely, not requiring evaluation currently): [Clinically no evidence of Kevin's angina, peritonsillar abscess, retropharyngeal abscess.] MDM Data Please see HPI for the following: Independent Historians and external Records Review. Historian: [Patient] Independent Historians: ?[Significant other] Medication Management: [Reviewed medication list] Social History and determinants: [Reviewed] Please see the body of the note for the following: Any independent interpretations of ECG, imaging studies. All vitals signs/haemodynamics, ordered tests were independently reviewed and interpreted by myself. Nursing triage complaint and vitals reviewed, additional nursing notes were reviewed as available and I agree unless otherwise noted or documented in contradiction in the chart Vital Signs: Independently reviewed Labs: Independently interpreted Imaging: Independently interpreted Old Medical Records: Independently reviewed, see HPI for relevant summary and information Pulse Oximetry: [99%] interpreted as [normal on room air] by me Additionally notably showing: [Hemodynamically stable] Tests considered but not ordered include: [Hematologic workup and imaging has been considered but does not appear to be necessary given clinical nature of diagnosis] Social Determinants of Health Impact: Patient was evaluated in [facility], or [facility] [place] to healthcare due to below par ratio of patient to medical providers. [] Comorbid Conditions Impacting Present Evaluation and Care/Treatment: [Poor dentition] Management Discussions with other Healthcare Providers: [None] Treatment and Disposition Medication Management (Given or considered): [Pain management]. See EMR for details Consideration for Hospitalization/Escalation/Deescalation of Care: Admission for observation has been considered, [however the patient is able to tolerate p.o., their symptoms are controlled, they are able to rely on oral medications, and their chief complaint/diagnosis can be managed on outpatient basis.] ?ED Course:?[Pain improved.] ?Shared decision making:?[Patient is hemodynamically stable for discharge home with follow with their primary care provider. [ ] Specific and cautious return precautions provided and discussed with full understanding. Any incidental findings were also discussed and follow up recommendations given. [] All questions answered. Patient/family were able to verbalize back return precautions. Patient/family agree to plan. Copies of imaging and laboratory studies were provided.] Code status:?FULL Please see the full Electronic Medical Record for full details of nursing doc umentation, medications list, other records of complete past medical history and conditions, vital signs, laboratory studies, and any radiologic study interpretations by radiologists. Portions of this note were completed using [employer] dictation software and as a result there may exist minor errors in spelling. I have reviewed elements of past family and social history and agree as included in note. Differential Dx:Considerations: Include: Alveolar fracture, Alveolar osteitis, ANUG, Facial Cellulitis, Periapical abscess, Peridontal abscess, Post-extraction bleeding, Pulpitis, Tooth avulsion, Tooth eruption, Tooth Fracture, Trigeminal neuralgia, Tooth subluxation Departure Disposition: HOME / SELF CARE / HOMELESS Impression: Primary Impression: Toothache Condition: Improved Discharge Instructions: Dental Pain Referrals: NO PRIMARY CARE PROVIDER (PCP) Prescriptions Amox Tr/Potassium Clavulanate 875/125 MG (Augmentin 875/125 MG) 875 Mg-125 Mg Tablet 1 TAB PO Q12H for 10 Days, #20 TAB Prov: KULDEEP PAIGE DO 05/11/25 Signature Scribe Signature: No scribe Attestation: The note accurately reflects work and decisions made by me.Kuldeep Paige, DO 05/11/25 00:26 KULDEEP PAIGE DO May 11, 2025 00:26
[2025-05-11 00:39] VITALS: TEMP 96.1
== END 2025-05-11 00:40 | disposition home or self-care (01) ==
LOC: ER 22:14
DX: K08.89 Other specified disorders of teeth and supporting structures (principal); I10 Essential (primary) hypertension; G89.29 Other chronic pain; F31.9 Bipolar disorder, unspecified; F12.90 Cannabis use, unspecified, uncomplicated; E11.9 Type 2 diabetes mellitus without complications; F41.9 Anxiety disorder, unspecified; Z88.8 Allergy status to other drugs, medicaments and biological substances; Z79.899 Other long term (current) drug therapy; Z79.84 Long term (current) use of oral hypoglycemic drugs
CPT/HCPCS: 96372; 99283; J1171